=== PATIENT | female | born 1940 | race African-American/Black ===

== ENCOUNTER 2016-12-10 10:48 | Emergency (ER) | payer OTHER ==
[~2016-12-10 10:48] MED LIST: ASAB PO; ATV.5 PO; BONIVA150 MG PO; BRIMONIDINE0.2 % OPH; CELEXA20 PO; DIOVAN HCT160 MG/25 PO; FORTAMET500 MG PO; GLUMETZA500 MG PO; METHOC500B PO; MOBIC7.5 PO; NEUR100 PO; NORV10 PO; NORV5 PO; PLAVIX PO; PRAVACHOL40 MG PO; PRILOSEC OTC20 MG PO; TIMOLOL MAL0.5 % OP; ULTRAM50 PO; XALAT OPH; ZIAC10 PO; ZYRTEC ALLGY10 MG PO
== END 2016-12-10 11:49 | disposition home or self-care (01) ==
LOC: ER 10:48
PROC: 0HQ1XZZ Repair Face Skin, External Approach (ICD-10-PCS; principal; 2016-12-10)
DX: S01.81XA Laceration without foreign body of other part of head, initial encounter (principal); Z88.1 Allergy status to other antibiotic agents; Z88.5 Allergy status to narcotic agent; Z88.8 Allergy status to other drugs, medicaments and biological substances; Z91.040 Latex allergy status; Z79.82 Long term (current) use of aspirin; Z79.84 Long term (current) use of oral hypoglycemic drugs; Z79.891 Long term (current) use of opiate analgesic; Z79.899 Other long term (current) drug therapy; W01.0XXA Fall on same level from slipping, tripping and stumbling without subsequent striking against object, initial encounter
CPT/HCPCS: 70450; 90471; 90714; 99284; A9270-GY